=== PATIENT | male | born 1940 | race Caucasian/White ===

== ENCOUNTER → 2020-03-14 | Outpatient (CLI) | payer OTHER ==
[~2020-03-14] MED LIST: AMLODIPINE BESY10 MG PO; ASPIRIN325 PO; ATENOLOL 25 MG25 M1 PO; ATENOLOL 50MG T50 M1 PO; CLARINEX5 MG PO; EFFIENT10 MG PO; LISINOPRIL40 MG PO; LO-DOSE ASPIRIN81 M1 PO; TRIAMTERENE/HCT1 CA1 PO
== END ==
LOC: SJCVC 09:28
PROVIDERS: ATTEND Internal Medicine Cardiovascular Disease
DX: R94.31 Abnormal electrocardiogram [ECG] [EKG] (principal); I25.10 Atherosclerotic heart disease of native coronary artery without angina pectoris; I10 Essential (primary) hypertension; E78.00 Pure hypercholesterolemia, unspecified; I77.9 Disorder of arteries and arterioles, unspecified; R06.00 Dyspnea, unspecified; R68.89 Other general symptoms and signs

== ENCOUNTER → 2020-04-11 | Outpatient (CLI) | payer OTHER | LOC: SJCVCIMAG 08:02 | PROVIDERS: ATTEND Internal Medicine Cardiovascular Disease | DX: I08.1 Rheumatic disorders of both mitral and tricuspid valves (principal); R00.1 Bradycardia, unspecified; I10 Essential (primary) hypertension; I25.10 Atherosclerotic heart disease of native coronary artery without angina pectoris; Z98.61 Coronary angioplasty status ==